=== PATIENT | female | born 1955 | race Caucasian/White ===

== ENCOUNTER → 2018-11-09 | Outpatient (CLI) | payer BC ==
--- NOTE | 2018-11-09 08:50 | KCIC ---
EXAM: MRI right shoulder DATE: 11/09/2018 8:00 AM COMPARISON: Shoulder radiographs 11/03/2018 INDICATION: Right shoulder pain. Pain since April 2018, decreased range of motion. TECHNIQUE: Multiplanar, multisequence MRI of the right shoulder was performed without contrast. FINDINGS: Mild AC joint degenerative changes small associated osteophytes. Type I acromion. No os acromiale. Subacromial-subdeltoid bursal edema fluid from bursitis. No significant glenohumeral joint effusion. Partial-thickness articular sided tear of the anteriormost fibers of the supraspinatus tendon measuring 10 mm in AP dimension, involving approximately 50% tendon thickness. There is moderate increased signal within the substance of the supraspinatus tendon distally consistent with moderate tendinosis. No full-thickness rotator cuff tear is identified. Normal rotator cuff muscle signal and bulk. No fatty atrophy. Moderate increased signal and thickening of the intra-articular segment of the long head biceps tendon consistent with moderate tendinosis. The extra-articular long head biceps tendon is seen within the bicipital groove. Evaluation for labral tear is limited on this nonarthrographic study. Within these constraints no discrete labral tear is identified No fracture or osteonecrosis. Survey evaluation of the articular cartilage is grossly intact. IMPRESSION: 1. Partial-thickness articular sided tear of the anterior fibers of the supraspinatus tendon measures 10 mm in AP dimension involving approximately 50% tendon thickness. 2. Moderate tendinosis of the remainder of the supraspinatus tendon. 3. Moderate intra-articular long head biceps tendinosis. 4. Mild AC joint degenerative changes are seen. Electronically signed by: Jose A Cardenas MD (11/09/2018 8:48 AM) [id number]
== END | disposition home or self-care (01) ==
LOC: KCIC MRI 07:36
PROVIDERS: ATTEND Orthopaedic Surgery
DX: S46.811A Strain of other muscles, fascia and tendons at shoulder and upper arm level, right arm, initial encounter (principal); M19.011 Primary osteoarthritis, right shoulder; M75.81 Other shoulder lesions, right shoulder; X58.XXXA Exposure to other specified factors, initial encounter; Y93.89 Activity, other specified; Y92.89 Other specified places as the place of occurrence of the external cause; Y99.8 Other external cause status
CPT/HCPCS: 73221